=== PATIENT | female | born 1980 | race Caucasian/White ===

== ENCOUNTER 2020-08-10 17:54 | Outpatient (CLI) | payer BC, SELFPAY | END 2020-08-10 19:00 | disposition home or self-care (01) | LOC: SLB 17:54 | PROVIDERS: ATTEND Specialist | DX: Z20.828 Contact with and (suspected) exposure to other viral communicable diseases (principal) | CPT/HCPCS: C9803; U0003 ==

== ENCOUNTER 2020-08-15 13:28 | Inpatient (IN) | payer BC ==
[~2020-08-15] VITALS: Ht 160 cm; Wt 95.3 kg
[2020-08-15 20:59] VITALS: BP_SYST 127
[2020-08-15] MEDS ORDERED: TERBUTALINE SULFATE 1 MG/ML VIAL SUBCUT ONE (21:00)
[2020-08-15] MEDS ORDERED: LR 1,000 ML IV ONE (21:00)
[2020-08-15] MEDS: LR 1,000 ML IV SCH (21:00)
[2020-08-15] MEDS ORDERED: LR 500 ML IV ONE (21:00)
[2020-08-15] MEDS ORDERED: DINOPROSTONE 10 MG SUPP VG ONE (21:00)
[2020-08-15 21:20] LABS: BASOPHILS % (AUTO) 0.4 % (0.0-2.0); EOSINOPHILS # (AUTO) 0.1 K/uL (0.0-0.4); EOSINOPHILS % (AUTO) 0.6 % (0.0-4.0); HEMATOCRIT 37.3 % (36-48); HEMOGLOBIN 12.8 g/dL (12.0-16.0); LYMPHOCYTES % (AUTO) 29.3 % (20.5-51.5); MEAN CORPUSCULAR HEMOGLOBIN 30 pg (27-31); MEAN CORPUSCULAR HGB CONC 34 % (32-36); MEAN CORPUSCULAR VOLUME 86 fL (79.0-98.0); MONOCYTES # (AUTO) 0.8 K/uL (0.0-1.0); MONOCYTES % (AUTO) 8.1 % (1.7-9.3); NEUTROPHILS # (AUTO) 6.3 K/uL (1.8-7.7); NEUTROPHILS % (AUTO) 61.6 % (40.0-70.0); PLATELET COUNT (AUTO) 181 K/uL (130-430); RED BLOOD CELL COUNT(AUTO) 4.33 MIL/uL (4.2-6.2); RED CELL DISTRIBUTION WIDTH 15.2 % (9.0-15.0); WHITE BLOOD COUNT (AUTO) 10.3 K/uL (4.8-10.8)
[2020-08-15] MEDS ORDERED: MORPHINE SULFATE 10 MG/ML VIAL IVP PRN (23:30)
[2020-08-15] MEDS ORDERED: NALOXONE HCL 0.4 MG/ML AMP (NARCAN) IVP PRN (23:30)
[2020-08-16] MEDS: IBUPROFEN 600 MG TABLET PO SCH
[2020-08-16] MEDS: DOCUSATE SODIUM 100 MG CAPSULE PO SCH
[2020-08-16] MEDS: LR 1,000 ML IV SCH (10:00)
[2020-08-16] MEDS: OXYTOCIN/0.9 % SODIUM CHLORIDE 1,000 ML IV SCH ×2 (10:41→23:16)
[2020-08-16] MEDS ORDERED: fentaNYL CITRATE/PF 100 MCG/2 ML AMP ONE (12:55)
[2020-08-16] MEDS ORDERED: ROPIVACAINE HCL/PF 0.2% 200 ML ONE (12:55)
[2020-08-16] MEDS ORDERED: LR 500 ML IV ONE (17:45)
[2020-08-16] MEDS ORDERED: FENT2mCg/mL-ROPIVA0.2%/NS EPID 200 ML EP SCH (17:45)
[2020-08-16] MEDS ORDERED: METHYLERGONOVINE MALEATE 0.2 MG/ML AMP IM ONE (17:50)
[2020-08-16] MEDS ORDERED: METHYLERGONOVINE MALEATE 0.2 MG/ML AMP ONE (17:53)
[2020-08-16] MEDS ORDERED: OXYTOCIN 10 UNIT/ML VIAL ONE ×2 (17:55→22:44)
[2020-08-16] MEDS ORDERED: OXYTOCIN/0.9 % SODIUM CHLORIDE 1,000 ML IV SCH ×2 (18:00→23:15)
[2020-08-16] MEDS ORDERED: WITCH HAZEL LEAF 1 MED.PAD MED.PAD TP PRN (18:00)
[2020-08-16] MEDS ORDERED: LANOLIN 7 GM OINT. TP PRN (18:00)
[2020-08-16] MEDS ORDERED: OXYCODONE/ACETAMINOPHEN 5-325 TABLET PO PRN (18:00)
[2020-08-16] MEDS ORDERED: RHO(D) IMMUNE GLOBULIN/MALTOSE 1500 UNITS/1.3 ML (WINHRO) IM PRN (18:00)
[2020-08-16] MEDS ORDERED: ANUSOL 1 EA SUPP.RECT (PREPARATION H) RC PRN (18:00)
[2020-08-16] MEDS ORDERED: MEASLES,MUMPS&RUBELLA VACC/PF 12500 UNIT/0.5 ML VIAL SUBQ PRN (18:00)
[2020-08-16] MEDS ORDERED: HYDROcodone/ACETAMIN 5-325 MG TAB (NORCO/ VICODIN) PO PRN (18:00)
[2020-08-16] MEDS ORDERED: SENNOSIDES/DOCUSATE SODIUM 1 TAB TABLET(SENOKOT-S) PO PRN (18:00)
[2020-08-16] MEDS ORDERED: HYDROCORTISONE 0.5%, 28.35 GM TOPICAL CREAM TP PRN (18:00)
[2020-08-16] MEDS ORDERED: DERMOPLAST SPRAY TP PRN (18:00)
[2020-08-16] MEDS ORDERED: NALOXONE HCL 0.4 MG/ML AMP (NARCAN) IVP PRN (18:00)
[2020-08-16] MEDS ORDERED: METHYLERGONOVINE MALEATE 0.2 MG TABLET PO PRN (18:00)
[2020-08-16] MEDS ORDERED: DIPH-TET-PERTUS Vaccine 0.5 ML VIAL (ADACEL) I.M. PRN (18:00)
[2020-08-16] MEDS ORDERED: OXYTOCIN/0.9 % SODIUM CHLORIDE 1,000 ML IV ONE (18:00)
[2020-08-16] MEDS ORDERED: OXYTOCIN 10 UNIT/ML VIAL IV ONE (18:45)
[2020-08-16] MEDS ORDERED: MILK OF MAGNESIA 30 ML UDC PO ONE (20:00)
[2020-08-16] MEDS ORDERED: TEMAZEPAM 15 MG CAPSULE PO PRN (21:00)
[2020-08-17] MEDS: IBUPROFEN 600 MG TABLET PO SCH ×3 (06:00→17:49)
[2020-08-17 06:43] LABS: BASOPHILS % (AUTO) 0.3 % (0.0-2.0); EOSINOPHILS % (AUTO) 0.4 % (0.0-4.0); HEMATOCRIT 36.8 % (36-48); HEMOGLOBIN 12.4 g/dL (12.0-16.0); LYMPHOCYTES # (AUTO) 2.3 K/uL (1.0-5.5); LYMPHOCYTES % (AUTO) 22.6 % (20.5-51.5); MEAN CORPUSCULAR HEMOGLOBIN 29 pg (27-31); MEAN CORPUSCULAR HGB CONC 34 % (32-36); MEAN CORPUSCULAR VOLUME 87 fL (79.0-98.0); MONOCYTES # (AUTO) 0.6 K/uL (0.0-1.0); MONOCYTES % (AUTO) 6.2 % (1.7-9.3); NEUTROPHILS # (AUTO) 7.1 K/uL (1.8-7.7); NEUTROPHILS % (AUTO) 70.5 % (40.0-70.0); PLATELET COUNT (AUTO) 170 K/uL (130-430); RED BLOOD CELL COUNT(AUTO) 4.25 MIL/uL (4.2-6.2); RED CELL DISTRIBUTION WIDTH 15.6 % (9.0-15.0); WHITE BLOOD COUNT (AUTO) 10.1 K/uL (4.8-10.8)
[2020-08-17] MEDS: OXYCODONE/ACETAMINOPHEN 5-325 TABLET PO PRN ×2 (13:50→23:05)
[2020-08-17] MEDS: DOCUSATE SODIUM 100 MG CAPSULE PO SCH ×2 (18:26)
[2020-08-18] MEDS: IBUPROFEN 600 MG TABLET PO SCH ×4 (00:02→17:53)
[2020-08-18] MEDS: DOCUSATE SODIUM 100 MG CAPSULE PO SCH ×2 (09:07→17:58)
[2020-08-19] MEDS: DOCUSATE SODIUM 100 MG CAPSULE PO SCH (06:00)
[2020-08-19] MEDS: IBUPROFEN 600 MG TABLET PO SCH ×2 (06:03)
[2020-08-19] MEDS: OXYCODONE/ACETAMINOPHEN 5-325 TABLET PO PRN (09:13)
== END 2020-08-19 10:50 | disposition home or self-care (01) | DRG 806 ==
LOC: SPU 20:14
PROVIDERS: ADMIT Specialist; ATTEND Specialist
PROC: 10E0XZZ Delivery of Products of Conception, External Approach (ICD-10-PCS; principal; 2020-08-16)
PROC: 3E0R3BZ Introduction of Anesthetic Agent into Spinal Canal, Percutaneous Approach (ICD-10-PCS; 2020-08-16)
PROC: 00HU33Z Insertion of Infusion Device into Spinal Canal, Percutaneous Approach (ICD-10-PCS; 2020-08-16)
PROC: 3E0P7VZ Introduction of Hormone into Female Reproductive, Via Natural or Artificial Opening (ICD-10-PCS; 2020-08-16)
DX: O62.2 Other uterine inertia (principal); O44.03 Complete placenta previa NOS or without hemorrhage, third trimester; Z37.0 Single live birth; Z3A.39 39 weeks gestation of pregnancy
CPT/HCPCS: 36415; 81002-TC; 85025; 86592; 86886; 86900; 86901; J2210; J2590; J3010